=== PATIENT | female | born 1950 | race Two or more races ===

== ENCOUNTER 2022-11-18 17:41 | Inpatient (IN) | payer OTHER ==
[~2022-11-18] VITALS: Ht 167.6 cm; Wt 64.0 kg
[2022-11-18 21:21] VITALS: BP 145/112
[2022-11-18] MEDS ORDERED: DEXTROSE (50%) 50ML SYRG IV PRN (21:30)
[2022-11-18] MEDS ORDERED: AMIODARONE HCL 150 MG in D5W 5% 100 ML IV ONE (21:30)
[2022-11-18] MEDS ORDERED: MORPHINE SULFATE INJ 2 MG/ml SYRG IV PRN (21:30)
[2022-11-18] MEDS ORDERED: ONDANSETRON HCL 4 MG/2 ML VIAL IV PRN (21:30)
[2022-11-18] MEDS ORDERED: METOPROLOL TARTRATE 1MG/1ML-5ML VIAL IV PRN (21:30)
[2022-11-18] MEDS ORDERED: NITROGLYCERIN 0.4 MG SL TAB SL PRN (21:30)
[2022-11-18] MEDS ORDERED: HALOPERIDOL LACTATE 5 MG/ML INJ VIAL IM PRN (21:30)
[2022-11-18] MEDS: ENOXAPARIN SOD 60 MG/0.6 ML SYRINGE SC SCH (22:00)
[2022-11-18] MEDS: D5W/SOD CHLO 0.9% 1,000 ML IV SCH (22:00)
[2022-11-19] VITALS (7 sets, daily range): BP systolic 112–140; BP diastolic 55–81
[2022-11-19] MEDS: ACCU-CHEK COMFORT CURVE STRIP VI SCH ×4 (00:06→18:05)
[2022-11-19] MEDS ORDERED: AMIODARONE HCL (50 MG/ ML) 3 ML VIAL IV ONE (00:07)
[2022-11-19 02:43] LABS: Potassium 2.7 mmol/L (3.5-5.1)
[2022-11-19] MEDS: POTASSIUM CHL 20MEQ/100ML 100 ML IV SCH ×4 (03:30→10:47)
[2022-11-19 04:26] LABS: Urine Bacteria MANY /hpf (None Seen); Urine Blood Negative /uL (Negative); Urine Hyaline Cast FEW /lpf (0 - 2); Urine Mucus FEW (None Seen); Urine Specific Gravity 1.012 (1.001-1.035); Urine WBC 23 /hpf (0 - 5)
[2022-11-19] MEDS: InsuLIN REG 1unit/0.01ml Soln (100units/ml) SC SCH ×4 (06:00→18:00)
[2022-11-19 06:54] LABS: Eosinophils # (auto) 0.1 10 ^3/uL (0-0.8); Lymphocytes # (auto) 1.6 10 ^3/uL (0.4-5.4); Monocytes # (auto) 1.4 10 ^3/uL (0-1.3); Neutrophils # (auto) 6.4 10 ^3/uL (1.6-8.6); Nucleated Red Blood Cells % 0.1 %; Red Blood Cells 4.07 10^6/uL (4.0-5.20)
[2022-11-19 06:57] LABS: Basophils # (auto) 0 10 ^3/uL (0-0.2); Basophils % (auto) 0.5 % (0.0-2.0); Eosinophils % (auto) 0.9 % (0.0-7.0); Hematocrit 39.5 % (36.0-46.0); Hemoglobin 13.5 g/dL (12.2-16.2); Lymphocytes % (auto) 17.1 % (10.0-50.0); Mean Corpuscular Hemoglobin 33.2 pg (28.0-32.0); Mean Corpuscular Hgb Conc. 34.2 g/dL (32.0-36.0); Mean Corpuscular Volume 96.9 fL (80.0-100.0); Monocytes % (auto) 14.6 % (0.0-12.0); Neutrophils % (auto) 66.9 % (37.0-80.0); Red Cell Distribution Width 14.4 % (11.8-14.3); White Blood Cell 9.5 10^3/uL (4.4-10.8)
[2022-11-19 07:01] LABS: INR 1.08 (0.9-1.15); Partial Thromboplastin Time 22.2 sec (24.6-33.4)
[2022-11-19 07:05] LABS: Albumin 3.2 g/dL (3.4-5.0); BUN/Creatinine Ratio 27.8; Calcium 9.3 mg/dL (8.5-10.1); Potassium 3.2 mmol/L (3.5-5.1)
[2022-11-19 07:08] LABS: Bilirubin, Total 0.9 mg/dL (0.2-1.0); Total Protein 6.2 g/dL (6.4-8.2)
[2022-11-19] MEDS: D5W/SOD CHLO 0.9% 1,000 ML IV SCH ×3 (07:30→15:45)
[2022-11-19] MEDS: ASPirin 300 MG RECTAL SUPP PR SCH (09:04)
[2022-11-19] MEDS: ENOXAPARIN SOD 60 MG/0.6 ML SYRINGE SC SCH ×2 (10:00→22:00)
[2022-11-19] MEDS ORDERED: cefTRIAXone 1GM/50ML D5W 50 ML IV ONE (15:45)
[2022-11-19] MEDS ORDERED: LORazepam 2MG/ML-1ML VIAL IV PRN (18:00)
[2022-11-19] MEDS: METOPROLOL TARTRATE 1MG/1ML-5ML VIAL IV SCH (18:11)
[2022-11-19 19:30] LABS: Folate (Folic Acid) 13.55 ng/mL (5.38-24)
[2022-11-20] MEDS: METOPROLOL TARTRATE 1MG/1ML-5ML VIAL IV SCH ×2 (00:29→06:05)
[2022-11-20] MEDS: ACCU-CHEK COMFORT CURVE STRIP VI SCH ×4 (00:32→17:35)
[2022-11-20 05:00] VITALS: BP 130/75
[2022-11-20] MEDS: D5W/SOD CHLO 0.9% 1,000 ML IV SCH (06:03)
[2022-11-20] MEDS: InsuLIN REG 1unit/0.01ml Soln (100units/ml) SC SCH ×2 (06:09)
[2022-11-20 08:00] VITALS: BP 116/70
[2022-11-20] MEDS ORDERED: LORazepam 2MG/ML-1ML VIAL IV ONE (08:00)
[2022-11-20 09:00] VITALS: BP 132/75
[2022-11-20 09:14] LABS: BUN/Creatinine Ratio 12.6; Calcium 9.8 mg/dL (8.5-10.1); Potassium 3.3 mmol/L (3.5-5.1)
[2022-11-20] MEDS: ASPirin 300 MG RECTAL SUPP PR SCH (09:32)
[2022-11-20] MEDS: cefTRIAXone 1GM/50ML D5W 50 ML IV SCH (09:32)
[2022-11-20 13:00] VITALS: BP 143/75
[2022-11-20 18:13] VITALS: BP 148/71
[2022-11-20] MEDS: METOPROLOL TARTRATE 25 MG TAB PO SCH (21:07)
[2022-11-20] MEDS: APIXABAN 5 MG TAB PO SCH (21:07)
[2022-11-20] MEDS: ATORVASTATIN 20 MG TAB PO SCH (21:07)
[2022-11-20 22:00] VITALS: BP 140/68
[2022-11-21] VITALS (7 sets, daily range): BP systolic 127–144; BP diastolic 67–84
[2022-11-21] MEDS: ACCU-CHEK COMFORT CURVE STRIP VI SCH ×5 (05:43→23:45)
[2022-11-21 06:19] LABS: Basophils # (auto) 0.1 10 ^3/uL (0-0.2); Basophils % (auto) 0.7 % (0.0-2.0); Eosinophils # (auto) 0.2 10 ^3/uL (0-0.8); Eosinophils % (auto) 2.5 % (0.0-7.0); Hematocrit 40.3 % (36.0-46.0); Lymphocytes # (auto) 2.2 10 ^3/uL (0.4-5.4); Lymphocytes % (auto) 23.5 % (10.0-50.0); Mean Corpuscular Hemoglobin 33.1 pg (28.0-32.0); Mean Corpuscular Hgb Conc. 34.6 g/dL (32.0-36.0); Mean Corpuscular Volume 95.4 fL (80.0-100.0); Monocytes # (auto) 1.1 10 ^3/uL (0-1.3); Neutrophils # (auto) 5.7 10 ^3/uL (1.6-8.6); Neutrophils % (auto) 61.3 % (37.0-80.0); Nucleated Red Blood Cells % 0.1 %; Red Blood Cells 4.22 10^6/uL (4.0-5.20); Red Cell Distribution Width 13.9 % (11.8-14.3); White Blood Cell 9.3 10^3/uL (4.4-10.8)
[2022-11-21 06:27] LABS: INR 1.09 (0.9-1.15); Partial Thromboplastin Time 27.1 sec (24.6-33.4)
[2022-11-21 06:31] LABS: Calcium 9.4 mg/dL (8.5-10.1); Potassium 3.4 mmol/L (3.5-5.1)
[2022-11-21 06:33] LABS: BUN/Creatinine Ratio 24.7
[2022-11-21] MEDS: cefTRIAXone 1GM/50ML D5W 50 ML IV SCH (10:37)
[2022-11-21] MEDS: METOPROLOL TARTRATE 25 MG TAB PO SCH ×2 (10:38→21:14)
[2022-11-21] MEDS: APIXABAN 5 MG TAB PO SCH ×2 (10:38→21:12)
[2022-11-21] MEDS: ATORVASTATIN 20 MG TAB PO SCH (21:13)
[2022-11-22 05:00] VITALS: BP 95/65
[2022-11-22] MEDS: ACCU-CHEK COMFORT CURVE STRIP VI SCH ×3 (05:30→18:00)
[2022-11-22 07:54] VITALS: BP 113/93
[2022-11-22 08:00] VITALS: BP 127/82
[2022-11-22] MEDS: cefTRIAXone 1GM/50ML D5W 50 ML IV SCH (08:26)
[2022-11-22] MEDS ORDERED: LORazepam 2MG/ML-1ML VIAL IV ONE (09:00)
[2022-11-22] MEDS: APIXABAN 5 MG TAB PO SCH ×2 (10:07→22:18)
[2022-11-22] MEDS: METOPROLOL TARTRATE 25 MG TAB PO SCH ×2 (10:07→22:18)
[2022-11-22] MEDS ORDERED: BISO1TAB17 PO (12:39)
[2022-11-22] MEDS ORDERED: FLUT110A INH ×2 (12:39)
[2022-11-22] MEDS ORDERED: AMLO-489 PO (12:39)
[2022-11-22] MEDS ORDERED: PANT1INJ3 PO (12:39)
[2022-11-22] MEDS ORDERED: FLUT50SP28 (12:39)
[2022-11-22] MEDS ORDERED: LEVO25TA6 PO (12:39)
[2022-11-22] MEDS ORDERED: MONT-8 PO (12:39)
[2022-11-22 12:44] VITALS: BP 118/90
[2022-11-22 17:00] VITALS: BP 116/96
[2022-11-22 22:00] VITALS: BP 152/68
[2022-11-22] MEDS: ATORVASTATIN 20 MG TAB PO SCH (22:18)
[2022-11-23 05:00] VITALS: BP 132/66
[2022-11-23] MEDS: ACCU-CHEK COMFORT CURVE STRIP VI SCH ×4 (06:00→18:09)
[2022-11-23 09:00] VITALS: BP_SYST 108; BP_SYST 157; BP_DIAS 69; BP_DIAS 81
[2022-11-23] MEDS: cefTRIAXone 1GM/50ML D5W 50 ML IV SCH (09:00)
[2022-11-23] MEDS: APIXABAN 5 MG TAB PO SCH ×2 (10:00→22:27)
[2022-11-23] MEDS: METOPROLOL TARTRATE 25 MG TAB PO SCH ×2 (10:01→22:26)
[2022-11-23 13:00] VITALS: BP 127/63
[2022-11-23] MEDS ORDERED: APIX5TAB PO (14:37)
[2022-11-23] MEDS ORDERED: ATOR20TA50 PO (14:37)
[2022-11-23] MEDS ORDERED: MET25T PO (14:37)
[2022-11-23 17:00] VITALS: BP 136/71
[2022-11-23] MEDS ORDERED: LORazepam 2MG/ML-1ML VIAL IV PRN (21:15)
[2022-11-23 22:00] VITALS: BP 130/74
[2022-11-23] MEDS: ATORVASTATIN 20 MG TAB PO SCH (22:26)
[2022-11-24 05:00] VITALS: BP 127/75
[2022-11-24] MEDS: ACCU-CHEK COMFORT CURVE STRIP VI SCH ×4 (06:20→18:00)
[2022-11-24] MEDS ORDERED: LEVOTHYROXINE SODIUM 25 MCG TAB PO SCH (07:00)
[2022-11-24] MEDS: APIXABAN 5 MG TAB PO SCH ×2 (08:35→21:28)
[2022-11-24] MEDS: METOPROLOL TARTRATE 25 MG TAB PO SCH ×2 (08:36→21:29)
[2022-11-24 08:51] VITALS: BP 138/60
[2022-11-24 13:00] VITALS: BP 114/63
[2022-11-24 13:53] VITALS: BP 138/60
[2022-11-24 17:00] VITALS: BP 119/65
[2022-11-24] MEDS: ATORVASTATIN 20 MG TAB PO SCH (21:28)
[2022-11-24 21:44] VITALS: BP 119/60
== END 2022-11-24 20:18 | disposition hospice, home (50) | DRG 64 ==
LOC: TELE-EAST 20:45 → UNDOADMIN 20:45 → TELE-EAST 21:34 → TELE-CENTR 11-21 21:40
PROVIDERS: ADMIT Hospitalist; ATTEND Hospitalist
DX: I63.411 Cerebral infarction due to embolism of right middle cerebral artery (principal); G93.41 Metabolic encephalopathy; N39.0 Urinary tract infection, site not specified; E87.6 Hypokalemia; I48.91 Unspecified atrial fibrillation; E11.22 Type 2 diabetes mellitus with diabetic chronic kidney disease; E78.5 Hyperlipidemia, unspecified; Z20.822 Contact with and (suspected) exposure to COVID-19; F02.80 Dementia in other diseases classified elsewhere, unspecified severity, without behavioral disturbance, psychotic disturbance, mood disturbance, and anxiety; R29.810 Facial weakness; Z60.2 Problems related to living alone; G30.9 Alzheimer's disease, unspecified; I13.10 Hypertensive heart and chronic kidney disease without heart failure, with stage 1 through stage 4 chronic kidney disease, or unspecified chronic kidney disease; N18.9 Chronic kidney disease, unspecified; Z80.8 Family history of malignant neoplasm of other organs or systems; Z83.3 Family history of diabetes mellitus
CPT/HCPCS: 36415; 70551; 71045; 80048; 80053; 81001; 82550; 82607; 82746; 82962; 83735; 84132; 84443; 84484; 85025; 85610; 85730; 87086; 87426; 92610; 93306; 95819; 97110; 97116; 97163; 97530; G0378; J0696; J1815; J3480; J7042; J7060